=== PATIENT | male | born 1945 | race Caucasian/White ===

== ENCOUNTER 2019-02-20 13:00 | Outpatient (CLI) | payer MEDICARE ==
[~2019-02-20] VITALS: Ht 167.6 cm; Wt 80.3 kg
[~2019-02-20 13:00] MED LIST: ALPR0.254 PO; ASPI-586 PO; FLUO40CA12 PO; INSU100V5 SQ; LISI-552 PO; LORA10TA7 PO; MELO15TA39 PO; METF-399 PO; MONT10TA24 PO
[2019-02-25] MEDS ORDERED: ACHD5005 PO (08:33)
== END 2019-02-20 13:20 | disposition home or self-care (01) ==
LOC: PREOP 13:00
PROVIDERS: ATTEND Surgery
DX: Z01.818 Encounter for other preprocedural examination (principal)

== ENCOUNTER 2019-02-25 06:49 | Day surgery (SDC) | payer MEDICARE, OTHER ==
[2019-02-25] VITALS (11 sets, daily range): BP systolic 122–172; BP diastolic 70–88
[~2019-02-25] VITALS: Ht 167.6 cm; Wt 79.4 kg
[2019-02-25] MEDS ORDERED: LACTATED RINGERS 1,000 ML IV PRN (06:58)
[2019-02-25] MEDS ORDERED: ceFAZolin 2 GM/50 ML NS 50 ML IV ONE (07:00)
[2019-02-25] MEDS ORDERED: BUP/EPI 0.5% 1:200,000 (MARCAINE) 10ML VIAL IJ ONE (07:09)
[2019-02-25] MEDS ORDERED: PROPOFOL INJECTION 50 ML IV ONE (07:17)
[2019-02-25] MEDS ORDERED: MIDAZOLAM 2 MG/2 ML (VERSED) VIAL ONE (07:19)
[2019-02-25] MEDS ORDERED: ceFAZolin 2 GM/50 ML NS 50 ML ONE (07:23)
[2019-02-25] MEDS ORDERED: CATHETER FLUSH 10 ML SYR IV PRN (07:45)
--- NOTE | 2019-02-25 08:32 | Progress Note-Post Operative ---
Post-Operative Progess Note Surgeon (s)/Rn Diabetes (s) Surgeon SUZIE SCHUSTER DO Rn Diabetes: none Pre-Operative Diagnosis BACK MASS Post-Operative Diagnosis same pending path Procedure & Operative Findings Date of Procedure 02/25/19 Procedure Performed/Findings Exc of back mass, appx 2.1cm incision into sub Q appx 1 inch deep Anesthesia Type IV sedation by UNLOAD ASSOCIATE Estimated Blood Loss Estimated blood loss (mL): scant Specimens/Packing Specimens Removed skin and back mass SUZIE SCHUSTER DO Feb 25, 2019 08:32
[2019-02-25] MEDS ORDERED: ACHD5005 PO (08:33)
--- NOTE | 2019-02-25 08:35 | Discharge Inst-Surgical ---
Discharge Inst-Surgical Depart Medication/Instructions New, Converted or Re-Newed RX: RX Given to Pt/Family Patient Instructions Follow up Appt: Make appointment for 1 week. [phone] Instructions: No strenuous activity. May shower in 24 hours, no tub bath or soaking. Use incentive spirometer at home as directed. No Smoking Skin/Wound Care: May remove bandages in am. You need to leave the sutures in place, come in to office to have them removed. Symptoms to Report: Appetite Changes, Extremity Discoloration, Numbness/Tingling, Swelling Increased, Bleeding Excessive, Eyesight Changes, Pain Increased, Urine Color Change, Constipation(Persistent), Fever over 101 degree F, Pain/Pressure in chest, Urinating Difficulty, Cough Up/Vomit Blood, Heart Beat Irreg/Pounding, Pain/Pressure in jaw, Cramps in feet or legs, Lightheadedness, Pain/Pressure in shoulder, Diarrhea(Persistent), Memory Changes Suddenly, Questions/Concerns, Weight gain consecutive days, Dizziness/Fainting, Nausea/Vomiting, Shortness of Breath, Weight gain over 2 pounds If questions or concerns contact your physician Or seek help at emergency department. Activity Activity as Tolerated: Yes Activity Instructions: Avoid Stress to Incision Driving Instructions: No Driving/Refer to Diet Discharge Diet: No Restrictions Diet After 24 Hours: Clear Liquid if Nauseous If Any Problems/Questions/Issu: Contact Your Physician, Go to Emergency Room Skin/Wound Care Infection Signs and Symptoms: Increased Redness, Foul Odor of Wound, Increased Drainage, Skin Itchy or Has a Rash, Increased Swelling, Temperature Above 101 F Bathing Instructions: Shower Stitches/Ngoc/Dermabond Dis: Care of Stitches Ice Pack: Ice On and Off Site (as needed for pain) SUZIE SCHUSTER DO Feb 25, 2019 08:35
--- NOTE | 2019-02-25 09:53 | Anesthesia-General Post-Op ---
MAC Patient Condition Mental Status/LOC: Same as Preop Cardiovascular: Satisfactory Nausea/Vomiting: Absent Respiratory: Satisfactory Pain: Controlled Complications: Absent Post Op Complications Complications None Follow Up Care/Instructions Patient Instructions None needed. Anesthesiology Discharge Order Discharge Order Patient is doing well, no complaints, stable vital signs, no apparent adverse anesthesia problems. No complications reported per nursing. VIVIENNE LEE CRNA Feb 25, 2019 09:52
--- NOTE | 2019-02-25 12:55 | OPERATIVE REPORT ---
DATE OF SERVICE: PREOPERATIVE DIAGNOSIS: Back mass. POSTOPERATIVE DIAGNOSIS: Back mass, pending pathology. PROCEDURE: Excision of back mass, 2.1 cm incision down into the subcutaneous tissue. SURGEON: Jeffrey Sheikh DO MEDICAL RECORDS SUPERVISOR: None. ANESTHESIA: IV sedation. SPECIMEN: Back mass. BLOOD LOSS: Scant. FLUIDS: Per anesthesia. POSTOPERATIVE CONDITION: Stable. INDICATION FOR PROCEDURE: The patient is a 73-year-old male who has a mass on his back that kept draining, has been getting bigger and smaller and he wanted to get this removed. FINDINGS: The patient had a back mass removed, looks like it was probably epidermal inclusion cyst or sebaceous cyst. PROCEDURE NOTE: After informed consent was obtained, the patient was brought to the operating room, placed on table in the left lateral decubitus position. He was administered IV sedation by the POWER GRADER OPERATOR who then monitored his vitals the entire time. Infiltrated the area, it had been marked just prior to surgery, with local around it in a regional block. Then made an elliptical incision, measuring about 2.1 cm, carried down through the skin into the subcutaneous tissue, deepened down thru subcutaneous tissue with Bovie electrocautery. Made the incision with #15 blade. Then with Bovie electrocautery went around and did actually get into the cyst a little bit, little bit of sebaceous material expressed, but able to get all the way around and removed the entire cyst with Bovie electrocautery. Once this was completely removed, then copiously irrigated the area with normal saline. Hemostasis obtained using Bovie electrocautery, then elected to close the incision with 2-0 Nylon, 3 interrupted vertical mattress sutures. Area was cleaned and dried. Band-Aid placed. The patient tolerated the procedure and he is on the bed, being transferred to recovery room now. Sponge, instrument and needle count correct at the end of the case. Job ID: [id number] DocumentID: [id number] Dictated Date: 02/25/2019 08:30:45 Butter Liquefier Date: 02/25/2019 12:54:49 Dictated By: JEFFREY SHEIKH DO [facility]
== END 2019-02-25 10:50 | disposition home or self-care (01) ==
LOC: SDC 06:49
PROVIDERS: ATTEND Surgery
DX: L72.0 Epidermal cyst (principal); E11.9 Type 2 diabetes mellitus without complications; F32.9 Major depressive disorder, single episode, unspecified; I10 Essential (primary) hypertension; Z79.4 Long term (current) use of insulin; Z79.891 Long term (current) use of opiate analgesic; Z79.899 Other long term (current) drug therapy; Z79.82 Long term (current) use of aspirin; Z79.84 Long term (current) use of oral hypoglycemic drugs
CPT/HCPCS: 82962; 87081

== ENCOUNTER 2022-06-18 08:18 | Emergency (ER) | payer MEDICARE ==
[~2022-06-18] VITALS: Ht 167 cm; Wt 79.0 kg
[~2022-06-18 08:18] MED LIST changes: +ACHD5005 PO; +ALPR.25T PO; -ALPR0.254 PO; -LISI-552 PO; +LISI20TA26 PO; +MONT-40 PO; -MONT10TA24 PO
--- NOTE | 2022-06-18 09:02 | ED Cardiac General ---
History of Present Illness General Chief Complaint: Cardiac/General Problems Stated Complaint: HIGH BLOOD PRESSURE Nursing Triage Note: ARRIVED VIA AMB WITH COMPLAINTS OF HYPERTENSION THAT IS EFFECTING HIS RIGHT EYE STARTING THE SAT BEFORE . STATES HE HAS BEEN TO HIS DR WHO HAS CHANGED HIS MEDS BUT IT REMAINS HIGH. Source: patient, family Exam Limitations: no limitations History of Present Illness Date Seen by Provider: Jun 18, 2022 Time Seen by Provider: 08:21 Initial Comments 76-year-old male with past medical history of hypertension, glaucoma, diabetes coming in due to elevated blood pressure and difficulty standing from his right eye since before . He has been to an mental health worker who stated it was changes in his eye due to high blood pressure. Since then he went to his PCP and was started on amlodipine 5 mg daily. He is on lisinopril 20 mg twice a day already. He has since seen an curriculum developer, and his pressure of his eye was in the 20s from his glaucoma. They started him on a new drop which brought the pressure down. They agreed that the vision changes were due to elevated blood pressure, and they recommended bringing his blood pressure down gradually. He states the vision is worse in the mornings, tends to improve over the course of the day. Denies any chest pain, shortness of breath, abdominal pain, nausea, vomiting, diarrhea, weakness, numbness, headache, neck stiffness, or any other concerns. Allergies and Home Medications Allergies Coded Allergies: No Known Drug Allergies (Unverified , 02/25/19) Patient Home Medication List Home Medication List Reviewed: Yes ALPRAZolam (Xanax Tablet) 0.25 Mg Tablet, 0.125 MG PO PRN, (Reported) Entered as Reported by: ZORAIDA VERDUGO on 02/20/19 1255 Aspirin (Aspir 81) 81 Mg Tablet., 81 MG PO DAILY, (Reported) Entered as Reported by: ZORAIDA VERDUGO on 02/20/19 1255 Fluoxetine HCl (Prozac) 40 Mg Capsule, 40 MG PO DAILY, (Reported) Entered as Reported by: ZORAIDA VERDUGO on 02/20/19 1255 Hydrocodone Bit/Acetaminophen (Lortab 5 Mg Tablet) 1 Tab Tab, 1 TAB PO Q6H PRN for PAIN-MODERATE Prescribed by: SUZIE SCHUSTER on 02/25/19 0833 Insulin Determir (Levemir) 1,000 Units/10 Ml Soln, 25 UNITS SQ HS, (Reported) Entered as Reported by: ZORAIDA VERDUGO on 02/20/19 125 Lisinopril (Lisinopril) 20 Mg Tablet, 20 MG PO DAILY, (Reported) Entered as Reported by: ZORAIDA VERDUGO on 02/20/19 125 Loratadine (Loratadine) 10 Mg Tablet, 10 MG PO DAILY, (Reported) Entered as Reported by: ZORAIDA VERDUGO on 02/20/19 125 Meloxicam (Meloxicam) 15 Mg Tablet, 15 MG PO DAILY, (Reported) Entered as Reported by: ZORAIDA VERDUGO on 02/20/19 125 Metformin HCl (Metformin HCl) 1,000 Mg Tablet, 1,000 MG PO BID, (Reported) Entered as Reported by: ZORAIDA VERDUGO on 02/20/19 125 Montelukast Sodium (Montelukast Sodium) 10 Mg Tablet, 10 MG PO DAILY, (Reported) Entered as Reported by: ZORAIDA VERDUGO on 02/20/19 125 Review of Systems Review of Systems Constitutional: No fever EENTM: See HPI Respiratory: No Symptoms Reported Cardiovascular: No Symptoms Reported Gastrointestinal: No Symptoms Reported Genitourinary: No Symptoms Reported Musculoskeletal: no symptoms reported Skin: no symptoms reported Psychiatric/Neurological: No Symptoms Reported Endocrine: No Symptoms Reported Hematologic/Lymphatic: No Symptoms Reported All Other Systems Reviewed Negative Unless Noted: Yes Past Wwbkzku-Rwgatd-Roqcpr Hx Patient Social History Tobacco Use?: Yes Smoking Status: Former Smoker Substance use?: No Alcohol Use?: No Immunizations Up To Date Second COVID19 Vaccination Danny: UNKNOWN COVID19 Vaccine Shooting Gallery Operator: MODERNA Seasonal Allergies Seasonal Allergies: Yes Past Medical History Surgeries: Yes (BILAT CTR, DENTAL, TESTICULAR BIOPSY) Tonsillectomy Respiratory: No Cardiac: Yes Hypertension Neurological: No Sexually Transmitted Disease: No HIV/AIDS: No Genitourinary: No Gastrointestinal: No Musculoskeletal: Yes (SHOULDERS, R KNEE) Arthritis Endocrine: Yes Diabetes, Insulin dep HEENT: Yes (GLASSES, DENTURES) Loss of Vision: Denies Hearing Impairment: Denies Cancer: No Psychosocial: Yes (HX DEPRESSION) Anxiety, Depression Integumentary: No Blood Disorders: No Adverse Reaction/Blood Tranf: No Physical Exam Vital Signs Vital Signs - First Documented 06/18/22 08:20 Temp 36.3 Pulse 81 Resp 16 B/P (MAP) 198/113 (141) Pulse Ox 99 O2 Delivery Room Air Capillary Refill : Less Than 3 Seconds Height, Weight, BMI Height: 5'6.00" Weight: 175lbs. 0.0oz. 79.854248yt; 28.00 BMI Method: General Appearance: No Apparent Distress, WD/WN HEENT: PERRL/EOMI, TMs Normal, Normal ENT Inspection, Pharynx Normal, Other (Normal visual acuity, normal visual nichols) Neck: Full Range of Motion, Normal Inspection, Non Tender, Supple Respiratory: Chest Non Tender, Lungs Clear, Normal Breath Sounds, No Accessory Muscle Use, No Respiratory Distress Cardiovascular: Regular Rate, Rhythm, No Edema, Normal Peripheral Pulses Gastrointestinal: Normal Bowel Sounds, Non Tender, Soft; No Guarding Extremity: Normal Capillary Refill, Normal Inspection, Normal Range of Motion, Non Tender, No Calf Tenderness, No Pedal Edema Neurologic/Psychiatric: Alert, Oriented x3, No Motor/Sensory Deficits, Normal Mood/Affect, lactation consultant II-XII Norm as Tested Skin: Normal Color, Warm/Dry Lymphatic: No Adenopathy Progress/Results/Core Measures Results/Orders My Orders Orders - GRISEL SUAREZ MD Ekg Tracing (06/18/22 08:26) Ekg Tracing (06/18/22 08:48) Vital Signs/I&O 06/18/22 08:20 Temp 36.3 Pulse 81 Resp 16 B/P (MAP) 198/113 (141) Pulse Ox 99 O2 Delivery Room Air Blood Pressure Mean: 141 Progress Progress Note : Progress Note 76-year-old male with above history coming in due to vision changes in the setting of having an elevated blood pressure. ABCs were intact and vitals were stable on presentation. Physical exam reassuring including a comprehensive neurologic exam which is nonfocal. Objectively, his visual acuity today is normal with normal visual nichols. Blood pressure is elevated. He is on meloxicam on review of his medications, I will child welfare counselor him to stop this. If blood pressure continues to be elevated after a week, I have recommended doubling his amlodipine dose since it is only at 5 mg. I recommend slowly bringing his blood pressure down over time. Otherwise has no red flags and is stable for discharge with outpatient follow-up Initial ECG Impression Date: Jun 18, 2022 Initial ECG Impression Time: 08:33 Initial ECG Rate: 74 Initial ECG Rhythm: Normal Sinus Comment Narrow QRS, normal axis, no significant ST changes, T wave flattening in the high lateral leads which is nonspecific Departure Impression Primary Impression: Uncontrolled hypertension Disposition: 01 HOME, SELF-CARE Condition: Stable Departure-Patient Inst. Decision time for Depature: 09:02 Referrals: CONOR FORD APRN (PCP) Primary Care Physician [facility] (Family) Primary Care Physician Patient Instructions: High Blood Pressure ED Add. Discharge Instructions: I recommend stopping the meloxicam, take your blood pressure twice a day and record the numbers. After a week for blood pressure is not improving, I would call your doctor and see if they can increase the dose of the amlodipine. If you have any crushing chest pain, severe shortness of breath, worst headache of your life, weakness or numbness or you cannot feel or move 1 side of her body, I would want you to come back to the ER. GRISEL SUAREZ MD Jun 18, 2022 09:02
[2022-06-18 09:17] VITALS: BP 176/89
== END 2022-06-18 09:11 | disposition home or self-care (01) ==
LOC: EDUNIT# 08:18 → ER 08:23
DX: I10 Essential (primary) hypertension (principal); E11.9 Type 2 diabetes mellitus without complications; Z87.891 Personal history of nicotine dependence; Z79.4 Long term (current) use of insulin
CPT/HCPCS: 93005